=== PATIENT | female | born 2005 | race Two or more races ===

== ENCOUNTER → 2024-02-22 | Outpatient (CLI) | payer MEDICAID, SELFPAY ==
--- NOTE | 2024-02-22 12:00 | XR_ITS ---
Examination: Pelvic ultrasound, transabdominal, complete Technique: Transabdominal ultrasound of the pelvis performed using grayscale imaging Date and time of exam: February 22, 2024 1128 hours INDICATIONS: Irregular menses beginning 2 months ago FINDINGS: Uterus 7.9 x 2.9 x 4.3 cm No uterine mass or intrauterine gestation Endometrial stripe 0.9 cm Right ovary 3.3 x 3.4 x 3.6 cm arterial flow small follicles Left ovary 3.0 x 2.4 x 3.5 cm arterial flow small follicles IMPRESSION: Negative examination
== END | disposition home or self-care (01) ==
LOC: CDIM 11:12
PROVIDERS: Referring Provider Nurse Practitioner Family; Visit Provider Nurse Practitioner Family
DX: N92.6 Irregular menstruation, unspecified (principal)
CPT/HCPCS: 76856

== ENCOUNTER 2024-12-04 18:10 | Emergency (ER) | payer MEDICAID, SELFPAY ==
--- NOTE | 2024-12-04 19:02 | PC.NURSE ---
NO ANSWER FOR VITALS
[2024-12-04 19:20] VITALS: BP 112/72; PULSE 81; RESP 16; TEMP 36.7; O2SAT 98; BMI 16.0
--- NOTE | 2024-12-04 20:24 | EDNOTE_ITS ---
ED General RME/HPI General Chief complaint: Ear Stated complaint: UNABLE TO HEAR FROM L) EAR Time Seen by Provider: 12/04/24 18:38 Arrival date/time: 12/04/24 18:10 CC: Muffled hearing in the left ear HPI onset this afternoon after cleaning the ears and got poked in the ear with some object not sure if it was a Q-tip or tweezers. The patient states she has hearing but is only muffled denies any bleeding or oozing from the ear. Denies any loss of hearing in the opposite ear no other complaints Related Data Previous Rx's ?Medication ?Instructions ?Recorded acetaminophen 500 mg/15 mL oral 250 mg (7.5 mL) PO QID PRN 10 days 05/21/12 liquid (Tylenol Extra Strength) ##0 cetirizine 10 mg capsule 10 mg PO QDAY PRN allergy sy mptoms 12/04/24 #14 caps Allergies Allergy/AdvReac Type Severity Reaction Status Date / Time No Known Allergies Allergy Verified 12/04/24 18:13 Review of Systems Review of Systems Narrative Review of Systems: GEN: No fever, no chills, no weight loss EYES: No discharge, no visual changes, no pain HEENT: No ear pain, no congestion, no sore throat PULM: No shortness of breath, no cough, no congestion CV: No chest pain, no dyspnea on exertion, no palpitations GI: No nausea, no vomiting, no diarrhea, no pain, no constipation : No frequency, no urgency, no dysuria MUSC/SKEL: No joint pain, no back pain SKIN: No rash PSYCH: No hallucinations, no depression HEME/LYMPH: No easy bleeding or bruising tendencies NEURO: No weakness, no headache Past Medical History Social History SMOKING STATUS: Never smoker ED Exam Narrative Physical exam: [General: Thin, but not in any acute distress Head normocephalic HEENT: Ears EACs bilaterally clear left ear TM intact no abrasions no puncture TM. No fluid, no wax or obstructing body. There is no surrounding TM erythema or edema. Right EAC and TM are unremarkable all of the subsystems of HEENT are within acceptable limits Neck is supple nontender Chest equal chest rise nontender to palpation Respiratory: Clear to auscultation no wheezes crackles or rubs CV: Rate rhythm is regular no murmurs rubs or clicks Abdomen is soft nontender no masses positive bowel sounds all 4 quadrants Back: No CVA tenderness no spinous process tenderness from cervical spine thoracic and lumbar spine Skin: Intact no petechiae rash induration ulceration or crepitus Extremities: Moving all extremity against resistance cap refill less than 2 seconds neurosensory intact Neuro: Awake alert oriented x3 Glascow coma 15 no focal deficits] Course Course Course Narrative: No foreign body or obstruction or trauma to the TM visualized, at this time I suspect the patient has a blocked eustachian tube we will put her on decongestants. Initially I thought of steroids however decongestants would seem more appropriate. Wait for the urine test and then discharge the patient home. Quality Measures none Orders Category Date Time Status HCG Qualitative,Urine Stat Lab 12/04/24 20:50 Completed Vital Signs Vital signs: Vital Signs Temperature 98.0 F 12/04/24 19:20 Pulse Rate 81 12/04/24 19:20 Respiratory Rate 16 12/04/24 19:20 Blood Pressure 112/72 12/04/24 19:20 Pulse Oximetry (%) 98 12/04/24 19:20 Oxygen Delivery Method Room Air 12/04/24 19:20 Discharge Plan Plan Patient Disposition: HOME (Self Care) Patient condition on transfer: Stable Prescriptions/Referrals Prescriptions/Med Rec: New cetirizine 10 mg capsule 10 mg PO QDAY PRN (Reason: allergy symptoms) Qty: 14 0RF No Action acetaminophen [Tylenol Extra Strength] 167 MG/5 ML liquid 250 mg PO QIDPRN 10 Days Qty: 0 0RF Referrals: No Primary/Family,Physician [Primary Care Provider] - In 1 week Aamir Ha [Referring Provider] - In 1 week Problem List Clinical Impression: Diminished hearing Patient/Caregiver Discharge Instructions Print Language: Turkish Stand Alone Forms: Dayanna Award Info., Patient Portal Info Letter MDM Clinical Information Provided by: patient Medical Records reviewed [facility] Meds/Rx considered, not ordered None Labs/Rad/Tests considered, not ordered None EKG EKG not done Labs Labs: interpreted by me Imaging Imaging interpretation: none Medication Administration(s) none Diagnosis Differential Diagnosis ED Complaint MDM: Puncture TM, otitis media otitis externa
[2024-12-04 21:31] LABS: HCG Qualitative,Urine Negative
== END 2024-12-04 22:06 | disposition home or self-care (01) ==
PROVIDERS: Registered Nurse General Practice; Emergency Provider Emergency Medicine
DX: H91.92 Unspecified hearing loss, left ear (principal); Z32.02 Encounter for pregnancy test, result negative
CPT/HCPCS: 81025; 99283